=== PATIENT | female | born 1925 | race Hispanic/Latino ===

== ENCOUNTER 2017-08-05 00:01 | Inpatient (IN) | payer MEDICARE ==
--- NOTE | 2017-08-05 00:26 | Cat Scan Report ---
FINAL REPORT EXAM: CT HEAD/BRAIN WO CON HISTORY: ams TECHNIQUE: Routine axial imaging was obtained of the brain without IV contrast. FINDINGS: There is mild generalized atrophy. There is diminished attenuation of the periventricular white matter compatible with chronic ischemic white matter disease changes. There is no evidence of acute stroke or hemorrhage. The ventricular system is appropriate in size and is symmetric. The visualized sinuses are clear. The mastoid air cells are well pneumatized. IMPRESSION: Mild generalized atrophy with chronic ischemic white matter disease changes. No evidence of acute stroke or hemorrhage.
[2017-08-05 00:32] LABS: Basophils % (Auto) 0.4 % (0.0-1.8); Eosinophils # (Auto) 0.2 K/mm3 (0.0-0.4); Eosinophils % (Auto) 1.8 % (0.0-4.3); Hemoglobin 14.1 gm/dl (10.1-14.3); Lymphocytes # (Auto) 4.5 K/mm3 (1.2-5.4); Lymphocytes % (Auto) 37.6 % (13.4-35.0); Mean Corpuscular HGB Conc 34 % (30-34); Mean Corpuscular Hemoglobin 31 pg (28-32); Mean Corpuscular Volume 91 fl (79-97); Monocytes # (Auto) 0.8 K/mm3 (0.0-0.8); Platelet Count 240 K/mm3 (140-440); Red Blood Count 4.62 M/mm3 (3.65-5.03); Red Cell Distribution Width 13.4 % (13.2-15.2)
[2017-08-05 00:45] LABS: INR 0.79 (0.87-1.13); Partial Thromboplastin Time 30.3 Sec. (24.2-36.6)
--- NOTE | 2017-08-05 00:45 | Emergency Department Report ---
ED Altered Mental Status HPI - General Chief Complaint: Altered Mental Status Stated Complaint: POSS STROKE Time Seen by Provider: 08/05/17 00:06 Source: EMS Mode of arrival: Stretcher Limitations: Altered Mental Status - History of Present Illness Initial Comments: 89-year-old female with unknown past medical history presents to the hospital with possible stroke symptoms. Family came home at 6 PM patient was "not acting like herself". Patient requests slurred speech, unable to stand, and was urinating in the bed. Positive confusion reported. Family at the scene denied past medical history as per EMS. Patient is oriented to self, place, but not to year. She denies any pain at this time. Daughter was able to provide patient's home meds which suggests that patient has a past medical history of osteoporosis, possible neuropathy, hypothyroidism , gastritis, and depression - Related Data Home Medications Medication Instructions Recorded Confirmed Last Taken Alendronate Sodium [Fosamax] 70 mg PO 1XW 08/05/17 08/05/17 08/01/17 Duloxetine HCl [DULoxetine] 60 mg PO DAILY 08/05/17 08/05/17 08/04/17 Gabapentin [Neurontin] 400 mg PO DAILY 08/05/17 08/05/17 08/04/17 HYDROcodone/ACETAMINOPHEN 1 each PO Q8HR PRN 08/05/17 08/05/17 08/04/17 [Hydrocodon-Acetaminophn 10-325] Levothyroxine [Synthroid] 88 mcg PO QAM 08/05/17 08/05/17 08/04/17 Omeprazole 20 mg PO TID 08/05/17 08/05/17 08/04/17 Paroxetine HCl [Paxil] 40 mg PO DAILY 08/05/17 08/05/17 08/04/17 Allergies Allergy/AdvReac Type Severity Reaction Status Date / Time Jbhuogl-Iod-Dzl Reductase Allergy Unknown Verified 08/05/17 01:01 Inhibitor ED Review of Systems ROS: Stated complaint: POSS STROKE Other details as noted in HPI Comment: All other systems reviewed and negative Other: Constitutional: No fevers chills Eyes: No eye pain ENT: No ear pain Neck: Denies pain Respiratory: Denies shortness of breath Cardiovascular: Denies chest pain GI: Denies abdominal pain : Denies dysuria Musculoskeletal: Denies back pain Skin: Denies rash, lesions, erythema Neurologic: Denies headache Psychiatric: Denies suicidal ideation, hallucinations ED Past Medical Hx - Past Medical History Previous Medical History?: No Hx Dementia: Yes Additional medical history: Dementia. Hypothyroidism - Surgical History Past Surgical History?: No - Medications Home Medications: Home Medications Medication Instructions Recorded Confirmed Last Taken Type Alendronate Sodium [Fosamax] 70 mg PO 1XW 08/05/17 08/05/17 08/01/17 History Duloxetine HCl [DULoxetine] 60 mg PO DAILY 08/05/17 08/05/17 08/04/17 History Gabapentin [Neurontin] 400 mg PO DAILY 08/05/17 08/05/17 08/04/17 History HYDROcodone/ACETAMINOPHEN 1 each PO Q8HR PRN 08/05/17 08/05/17 08/04/17 History [Hydrocodon-Acetaminophn 10-325] Levothyroxine [Synthroid] 88 mcg PO QAM 08/05/17 08/05/17 08/04/17 History Omeprazole 20 mg PO TID 08/05/17 08/05/17 08/04/17 History Paroxetine HCl [Paxil] 40 mg PO DAILY 08/05/17 08/05/17 08/04/17 History ED Physical Exam - General Limitations: Altered Mental Status - Other Other exam information: General: No limitations, patient is alert in no acute distress Head exam: Atraumatic, normocephalic Eyes exam: Normal appearance, pupils equal reactive to light, extraocular movements intact ENT: Moist mucous membrane, normal oropharynx Neck exam: Normal inspection, full range of motion, no meningismus nontender Respiratory exam: Clear to auscultation bilateral, no wheezes, rales, crackles Cardiovascular: Normal rate and rhythm, normal heart sounds Abdomen: Soft, nondistended, and nontender, with normal bowel sounds, no rebound, or guarding Extremity: Full range of motion normal inspection no deformity Back: Normal Inspection, full range of motion, no tenderness Neurologic: Alert, oriented x3, cranial nerves intact, see nih stroke scale Psychiatric: normal affect, normal mood Skin: Warm, dry, intact - Assessment Assessment Interval: Baseline - Level of Consciousness 1a. Level of Consciousness: alert - LOC Questions 1b. LOC Questions: answers 1 question correctly - LOC Command 1c. LOC Commands: performs tasks correctly - Best Gaze 2. Best Gaze: normal - Visual 3. Visual: no visual loss - Facial Palsy 4. Facial Palsy: normal symmetrical movement - Motor Arm 5b. Motor Arm Right: no drift 5a. Motor Arm Left: no drift - Motor Leg 6a. Motor Leg Left: no drift 6b. Motor Leg Right: no drift - Limb Ataxia 7. Limb Ataxia: absent - Sensory 8. Sensory: normal - Best Language 9. Best Language: no aphasia - Dysarthria 10. Dysarthria: normal - Extinction and Inattention 11. Extinction/Inattention: no abnormality - Scoring Total Score: 1 Stroke Severity: Minor Stroke ED Course Vital Signs 08/05/17 08/05/17 08/05/17 00:22 00:31 00:44 Temperature 97.6 F Pulse Rate 86 86 76 Respiratory 19 19 20 Rate Blood Pressure Blood Pressure 121/73 [Left] O2 Sat by Pulse 96 99 100 Oximetry 08/05/17 00:45 Temperature Pulse Rate 81 Respiratory 16 Rate Blood Pressure 129/71 Blood Pressure [Left] O2 Sat by Pulse 100 Oximetry - Consultations Consultation #1: 08/05/17 03:[address] Hdz at [place] and approved admission here. States that patient also has a history of dementia - Lab Data Result diagrams: 08/05/17 00:10 08/05/17 00:10 Lab Results 08/05/17 08/05/17 08/05/17 Range/Units 00:10 00:10 00:10 WBC 11.9 H (4.5-11.0) K/mm3 RBC 4.62 (3.65-5.03) M/mm3 Hgb 14.1 (10.1-14.3) gm/dl Hct 42.0 (30.3-42.9) % MCV 91 (79-97) fl MCH 31 (28-32) pg MCHC 34 (30-34) % RDW 13.4 (13.2-15.2) % Plt Count 240 (140-440) K/mm3 Lymph % (Auto) 37.6 H (13.4-35.0) % [place] % (Auto) 7.0 (0.0-7.3) % Eos % (Auto) 1.8 (0.0-4.3) % Baso % (Auto) 0.4 (0.0-1.8) % Lymph # 4.5 (1.2-5.4) K/mm3 [place] # 0.8 (0.0-0.8) K/mm3 Eos # 0.2 (0.0-0.4) K/mm3 Baso # 0.0 (0.0-0.1) K/mm3 Seg Neutrophils % 53.2 (40.0-70.0) % Seg Neutrophils # 6.3 (1.8-7.7) K/mm3 PT (12.2-14.9) Sec. INR (0.87-1.13) APTT (24.2-36.6) Sec. Sodium 131 L (137-145) mmol/L Potassium 3.6 (3.6-5.0) mmol/L Chloride 88.4 L (98-107) mmol/L Carbon Dioxide 30 (22-30) mmol/L Anion Gap 16 mmol/L BUN 9 (7-17) mg/dL Creatinine 0.5 L (0.7-1.2) mg/dL Estimated GFR > 60 ml/min BUN/Creatinine Ratio 18 % Glucose 109 H (65-100) mg/dL Calcium 8.5 (8.4-10.2) mg/dL Magnesium 1.70 (1.7-2.3) mg/dL Total Bilirubin 0.50 (0.1-1.2) mg/dL AST 17 (5-40) units/L ALT 13 (7-56) units/L Alkaline Phosphatase 70 (35-129) units/L Ammonia 19.0 L (25-60) umol/L Total Creatine Kinase 67 (30-135) units/L CK-MB (CK-2) 4.3 H (0.0-4.0) ng/mL CK-MB (CK-2) Rel Index 6.4 H (0-4) Troponin T < 0.010 (0.00-0.029) ng/mL Total Protein 6.6 (6.3-8.2) g/dL Albumin 3.6 L (3.9-5) g/dL Albumin/Globulin Ratio 1.2 % TSH (0.270-4.200) mlU/mL Free T4 (0.76-1.46) ng/dL Urine Color (Yellow) Urine Turbidity (Clear) Urine pH (5.0-7.0) Ur Specific [place] (1.003-1.030) Urine Protein (Negative) mg/dL Urine Glucose (UA) (Negative) mg/dL Urine Ketones (Negative) mg/dL Urine Blood (Negative) Urine Nitrite (Negative) Urine Bilirubin (Negative) Urine Urobilinogen (<2.0) mg/dL Ur Leukocyte Esterase (Negative) Urine WBC (Auto) (0.0-6.0) /HPF Urine RBC (Auto) (0.0-6.0) /HPF Urine Mucus /HPF Urine Opiates Screen Urine Methadone Screen Ur Barbiturates Screen Ur Phencyclidine Scrn Ur Amphetamines Screen U Benzodiazepines Scrn Urine Cocaine Screen U Marijuana (THC) Screen Drugs of Abuse Note Plasma/Serum Alcohol (0-0.07) % 08/05/17 08/05/17 08/05/17 Range/Units 00:10 00:10 00:10 WBC (4.5-11.0) K/mm3 RBC (3.65-5.03) M/mm3 Hgb (10.1-14.3) gm/dl Hct (30.3-42.9) % MCV (79-97) fl MCH (28-32) pg MCHC (30-34) % RDW (13.2-15.2) % Plt Count (140-440) K/mm3 Lymph % (Auto) (13.4-35.0) % [place] % (Auto) (0.0-7.3) % Eos % (Auto) (0.0-4.3) % Baso % (Auto) (0.0-1.8) % Lymph # (1.2-5.4) K/mm3 [place] # (0.0-0.8) K/mm3 Eos # (0.0-0.4) K/mm3 Baso # (0.0-0.1) K/mm3 Seg Neutrophils % (40.0-70.0) % Seg Neutrophils # (1.8-7.7) K/mm3 PT 11.4 L (12.2-14.9) Sec. INR 0.79 L (0.87-1.13) APTT 30.3 (24.2-36.6) Sec. Sodium (137-145) mmol/L Potassium (3.6-5.0) mmol/L Chloride (98-107) mmol/L Carbon Dioxide (22-30) mmol/L Anion Gap mmol/L BUN (7-17) mg/dL Creatinine (0.7-1.2) mg/dL Estimated GFR ml/min BUN/Creatinine Ratio % Glucose (65-100) mg/dL Calcium (8.4-10.2) mg/dL Magnesium (1.7-2.3) mg/dL Total Bilirubin (0.1-1.2) mg/dL AST (5-40) units/L ALT (7-56) units/L Alkaline Phosphatase (35-129) units/L Ammonia (25-60) umol/L Total Creatine Kinase (30-135) units/L CK-MB (CK-2) (0.0-4.0) ng/mL CK-MB (CK-2) Rel Index (0-4) Troponin T (0.00-0.029) ng/mL Total Protein (6.3-8.2) g/dL Albumin (3.9-5) g/dL Albumin/Globulin Ratio % TSH 4.960 H (0.270-4.200) mlU/mL Free T4 1.61 H (0.76-1.46) ng/dL Urine Color (Yellow) Urine Turbidity (Clear) Urine pH (5.0-7.0) Ur Specific [place] (1.003-1.030) Urine Protein (Negative) mg/dL Urine Glucose (UA) (Negative) mg/dL Urine Ketones (Negative) mg/dL Urine Blood (Negative) Urine Nitrite (Negative) Urine Bilirubin (Negative) Urine Urobilinogen (<2.0) mg/dL Ur Leukocyte Esterase (Negative) Urine WBC (Auto) (0.0-6.0) /HPF Urine RBC (Auto) (0.0-6.0) /HPF Urine Mucus /HPF Urine Opiates Screen Urine Methadone Screen Ur Barbiturates Screen Ur Phencyclidine Scrn Ur Amphetamines Screen U Benzodiazepines Scrn Urine Cocaine Screen U Marijuana (THC) Screen Drugs of Abuse Note Plasma/Serum Alcohol < 0.01 (0-0.07) % 08/05/17 08/05/17 Range/Units 00:44 00:44 WBC (4.5-11.0) K/mm3 RBC (3.65-5.03) M/mm3 Hgb (10.1-14.3) gm/dl Hct (30.3-42.9) % MCV (79-97) fl MCH (28-32) pg MCHC (30-34) % RDW (13.2-15.2) % Plt Count (140-440) K/mm3 Lymph % (Auto) (13.4-35.0) % [place] % (Auto) (0.0-7.3) % Eos % (Auto) (0.0-4.3) % Baso % (Auto) (0.0-1.8) % Lymph # (1.2-5.4) K/mm3 [place] # (0.0-0.8) K/mm3 Eos # (0.0-0.4) K/mm3 Baso # (0.0-0.1) K/mm3 Seg Neutrophils % (40.0-70.0) % Seg Neutrophils # (1.8-7.7) K/mm3 PT (12.2-14.9) Sec. INR (0.87-1.13) APTT (24.2-36.6) Sec. Sodium (137-145) mmol/L Potassium (3.6-5.0) mmol/L Chloride (98-107) mmol/L Carbon Dioxide (22-30) mmol/L Anion Gap mmol/L BUN (7-17) mg/dL Creatinine (0.7-1.2) mg/dL Estimated GFR ml/min BUN/Creatinine Ratio % Glucose (65-100) mg/dL Calcium (8.4-10.2) mg/dL Magnesium (1.7-2.3) mg/dL Total Bilirubin (0.1-1.2) mg/dL AST (5-40) units/L ALT (7-56) units/L Alkaline Phosphatase (35-129) units/L Ammonia (25-60) umol/L Total Creatine Kinase (30-135) units/L CK-MB (CK-2) (0.0-4.0) ng/mL CK-MB (CK-2) Rel Index (0-4) Troponin T (0.00-0.029) ng/mL Total Protein (6.3-8.2) g/dL Albumin (3.9-5) g/dL Albumin/Globulin Ratio % TSH (0.270-4.200) mlU/mL Free T4 (0.76-1.46) ng/dL Urine Color Straw (Yellow) Urine Turbidity Clear (Clear) Urine pH 7.0 (5.0-7.0) Ur Specific [place] 1.004 (1.003-1.030) Urine Protein <15 mg/dl (Negative) mg/dL Urine Glucose (UA) Neg (Negative) mg/dL Urine Ketones Neg (Negative) mg/dL Urine Blood Sm (Negative) Urine Nitrite Neg (Negative) Urine Bilirubin Neg (Negative) Urine Urobilinogen < 2.0 (<2.0) mg/dL Ur Leukocyte Esterase Neg (Negative) Urine WBC (Auto) < 1.0 (0.0-6.0) /HPF Urine RBC (Auto) 2.0 (0.0-6.0) /HPF Urine Mucus Few /HPF Urine Opiates Screen Presumptive negative Urine Methadone Screen Presumptive negative Ur Barbiturates Screen Presumptive negative Ur Phencyclidine Scrn Presumptive negative Ur Amphetamines Screen Presumptive negative U Benzodiazepines Scrn Presumptive negative Urine Cocaine Screen Presumptive negative U Marijuana (THC) Screen Presumptive negative Drugs of Abuse Note Disclamer Plasma/Serum Alcohol (0-0.07) % - EKG Data -: EKG Interpreted by Wy EKG shows normal: sinus rhythm, axis (-41), QRS complexes (87), ST-T waves (no stemi/t inv) Rate: normal (85) - Radiology Data Radiology results: report reviewed Read by radiologist CT head: Mild Generalized atrophy with chronic ischemic white matter disease changes - Medical Decision Making Patient here for alteration in mental status. Initial ED workup fairly unremarkable with exception of hyponatremia. EMS noted that family members appear to be intoxicated and was speaking to daughter on the phone she did appear to be intoxicated. Patient will be admitted to the hospital at this time for possible alteration in mental status and to determine state discharge plan. - Differential Diagnosis cva, encephalopathy, uti, dementia, ich Critical Care Time: No Critical care attestation.: If time is entered above; I have spent that time in minutes in the direct care of this critically ill patient, excluding procedure time. ED Disposition Clinical Impression: Dementia, Hypothyroidism, Generalized weakness Disposition: OP ADMIT IP TO THIS HOSP Is pt being admited?: Yes Condition: Stable Time of Disposition: 03:14 (Dr Gill/hosp)
[2017-08-05 00:51] LABS: Creatine Kinase MB 4.3 ng/mL (0.0-4.0)
[2017-08-05 00:53] LABS: Alanine Aminotransferase 13 units/L (7-56); Albumin 3.6 g/dL (3.9-5); BUN/Creatinine Ratio 18; Blood Urea Nitrogen 9 mg/dL (7-17); Calcium 8.5 mg/dL (8.4-10.2); Hemolysis Index 3
[2017-08-05 00:58] LABS: Free T4 (Free Thyroxine) 1.61 ng/dL (0.76-1.46)
[2017-08-05 02:19] LABS: Bilirubin,Urine NEG (Negative); Blood,Urine SM (Negative); Color,Urine Straw (Yellow); Mucus,Urine FEW /HPF; Nitrite,Urine NEG (Negative); Protein,Urine <15 mg/dL mg/dL (Negative); Urobilinogen,Urine < 2.0 mg/dL (<2.0); WBC,Urine < 1.0 /HPF (0.0-6.0)
[2017-08-05 02:29] LABS: Amphetamine Screen,Urine PRESUMPTIVE NEGATIVE; Benzodiazepines Screen,Urine PRESUMPTIVE NEGATIVE; Cannabinoid Screen,Urine PRESUMPTIVE NEGATIVE; Cocaine Screen,Urine PRESUMPTIVE NEGATIVE; Methadone Screen,Urine PRESUMPTIVE NEGATIVE; Opiate Screen,Urine PRESUMPTIVE NEGATIVE
[2017-08-05] MEDS ORDERED: TYLENOL PO PRN (10:44)
[2017-08-05] MEDS ORDERED: ZOFRAN IV PRN (10:44)
[2017-08-05] MEDS ORDERED: MILK OF MAGNESIA PO PRN (10:44)
[2017-08-05] MEDS ORDERED: SENOKOT PO PRN (10:44)
[2017-08-05] MEDS ORDERED: DULCOLAX PR PRN (10:44)
[2017-08-05] MEDS ORDERED: SODIUM CHLORIDE FLUSH SYRINGE 10 ML IV PRN (10:44)
[2017-08-05] MEDS ORDERED: NORMODYNE IV ONE (11:00)
[2017-08-05] MEDS: ATIVAN IV PRN ×2 (12:35→13:10)
--- NOTE | 2017-08-05 13:49 | XRay Report ---
CHEST XRAY, 2 VIEWS: History: Stroke. Findings: There is mild cardiomegaly. Pulmonary vessels are within normal limits. The lungs are clear and fully expanded. No infiltrate, pleural effusion or pneumothorax. Normal thoracic cage. IMPRESSION: Cardiomegaly.
--- NOTE | 2017-08-05 15:02 | Magnetic Resonance Report ---
MRI OF THE BRAIN WITHOUT CONTRAST: HISTORY: CVA PROCEDURE: Multiplanar, multisequence MR imaging of the brain without IV contrast was performed. FINDINGS: Compared to the CT scan performed 08/05/17. Diffuse volume loss and advanced chronic white matter changes in the cerebral white matter and [place] are noted. No evidence for acute ischemia, hemorrhage or mass. No chronic infarct or extra-axial fluid collection. The midline structures are central. The basal cisterns are patent. Normal ventricular size. The orbital cavities and sella turcica demonstrate no abnormality. The visualized paranasal sinuses and mastoid air cells are well aerated. IMPRESSION: No evidence for acute or subacute stroke. Advanced volume loss and chronic white matter changes.
--- NOTE | 2017-08-05 15:03 | Magnetic Resonance Report ---
MRA HEAD WITHOUT CONTRAST HISTORY: Stroke. [id number] imaging with MIP reformations of the [place] is submitted. The images are severely limited by patient motion artifact. The arteries appear widely patent and free of hemodynamically significant stenosis, aneurysm or dissection. IMPRESSION: Limited exam. No large vessel occlusion or aneurysm is detected.
[2017-08-05] MEDS: ASPIRIN PO SCH (15:24)
[2017-08-05] MEDS: CYMBALTA PO SCH (15:24)
[2017-08-05] MEDS: PAXIL PO SCH (15:34)
[2017-08-05] MEDS: PROTONIX PO SCH (15:34)
--- NOTE | 2017-08-05 17:10 | History and Physical Report ---
History of Present Illness Date of admission: 08/05/17 07:02 Chief complaint: She has been acting strange History of present illness: The patient is currently confused and somnolent, history was taken from the chart 89-year-old woman was brought in by family for confusion. She was noted by family members to be confused and having slurred speech Seems strangely. She apparently urinated in her bed is unusual for her -Unable to get any further history as the patient is confused and not given history Past History Past Medical History: other (osteoporosis, neuropathy, dementia, gastritis, depression) Past Surgical History: Other (unknown) Social history: other (unknown) Family history: other (unknown) Medications and Allergies Allergies Allergy/AdvReac Type Severity Reaction Status Date / Time Rgdvywm-Pve-Yfy Reductase Allergy Unknown Verified 08/05/17 01:01 Inhibitor Home Medications Medication Instructions Recorded Confirmed Last Taken Type Alendronate Sodium [Fosamax] 70 mg PO 1XW 08/05/17 08/05/17 08/01/17 History Duloxetine HCl [DULoxetine] 60 mg PO DAILY 08/05/17 08/05/17 08/04/17 History Gabapentin [Neurontin] 400 mg PO DAILY 08/05/17 08/05/17 08/04/17 History HYDROcodone/ACETAMINOPHEN 1 each PO Q8HR PRN 08/05/17 08/05/17 08/04/17 History [Hydrocodon-Acetaminophn 10-325] Levothyroxine [Synthroid] 88 mcg PO QAM 08/05/17 08/05/17 08/04/17 History Omeprazole 20 mg PO TID 08/05/17 08/05/17 08/04/17 History Paroxetine HCl [Paxil] 40 mg PO DAILY 08/05/17 08/05/17 08/04/17 History Active Meds: Active Medications Acetaminophen (Tylenol) 650 mg PO Q4H PRN PRN Reason: Pain, Mild (1-3) Aspirin (Aspirin) 325 mg PO QDAY ON LICENSE OF [facility] Last Admin: 08/05/17 15:24 Dose: 325 mg Bisacodyl (Dulcolax) 10 mg MD QDAY PRN PRN Reason: Constipation Duloxetine HCl (Cymbalta) 60 mg PO QDAY ON LICENSE OF [facility] Last Admin: 08/05/17 15:24 Dose: 60 mg Levothyroxine Sodium (Synthroid) 88 mcg PO DAILY@0600 ON LICENSE OF [facility] Magnesium Hydroxide (Milk Of Magnesia) 30 ml PO Q4H PRN PRN Reason: Constipation Ondansetron HCl (Zofran) 4 mg IV Q8H PRN PRN Reason: N/V unrelieved by Reglan Pantoprazole Sodium (Protonix) 40 mg PO DAILY ON LICENSE OF [facility] Last Admin: 08/05/17 15:34 Dose: 40 mg Paroxetine HCl (Paxil) 40 mg PO DAILY ON LICENSE OF [facility] Last Admin: 08/05/17 15:34 Dose: 40 mg Senna (Senokot) 8.6 mg PO Q12H PRN PRN Reason: Laxative Effect Sodium Chloride (Sodium Chloride Flush Syringe 10 Ml) 10 ml IV PRN PRN PRN Reason: LINE FLUSH Review of Systems ROS unobtainable: due to mental status Exam - Constitutional Vitals: Temp Pulse Resp BP Pulse Ox 98.5 F 86 19 146/69 80 L 08/05/17 11:14 08/05/17 15:24 08/05/17 11:14 08/05/17 15:24 08/05/17 14:55 General appearance: Present: no acute distress, well-nourished - EENT Eyes: Present: PERRL ENT: hearing intact, clear oral mucosa - Neck Neck: Present: supple, normal ROM - Respiratory Respiratory effort: normal Respiratory: bilateral: CTA - Cardiovascular Heart Sounds: Present: S1 & S2. Absent: rub, click - Extremities Extremities: pulses symmetrical, No edema Peripheral Pulses: within normal limits - Abdominal General gastrointestinal: Present: soft, non-tender, non-distended, normal bowel sounds Female genitourinary: Present: normal - Integumentary Integumentary: Present: clear, warm, dry - Musculoskeletal Musculoskeletal: gait normal, strength equal bilaterally - Psychiatric Psychiatric: other (confused, somnolent) - Neurologic Neurologic: other (confused, somnolent) Results - Labs CBC & Chem 7: 08/05/17 00:10 08/05/17 00:10 Labs: Laboratory Last Values WBC 11.9 K/mm3 (4.5-11.0) H 08/05/17 00:10 RBC 4.62 M/mm3 (3.65-5.03) 08/05/17 00:10 Hgb 14.1 gm/dl (10.1-14.3) 08/05/17 00:10 Hct 42.0 % (30.3-42.9) 08/05/17 00:10 MCV 91 fl (79-97) 08/05/17 00:10 MCH 31 pg (28-32) 08/05/17 00:10 MCHC 34 % (30-34) 08/05/17 00:10 RDW 13.4 % (13.2-15.2) 08/05/17 00:10 Plt Count 240 K/mm3 (140-440) 08/05/17 00:10 Lymph % (Auto) 37.6 % (13.4-35.0) H 08/05/17 00:10 [place] % (Auto) 7.0 % (0.0-7.3) 08/05/17 00:10 Eos % (Auto) 1.8 % (0.0-4.3) 08/05/17 00:10 Baso % (Auto) 0.4 % (0.0-1.8) 08/05/17 00:10 Lymph # 4.5 K/mm3 (1.2-5.4) 08/05/17 00:10 [place] # 0.8 K/mm3 (0.0-0.8) 08/05/17 00:10 Eos # 0.2 K/mm3 (0.0-0.4) 08/05/17 00:10 Baso # 0.0 K/mm3 (0.0-0.1) 08/05/17 00:10 Seg Neutrophils % 53.2 % (40.0-70.0) 08/05/17 00:10 Seg Neutrophils # 6.3 K/mm3 (1.8-7.7) 08/05/17 00:10 PT 11.4 Sec. (12.2-14.9) L 08/05/17 00:10 INR 0.79 (0.87-1.13) L 08/05/17 00:10 APTT 30.3 Sec. (24.2-36.6) 08/05/17 00:10 Sodium 131 mmol/L (137-145) L 08/05/17 00:10 Potassium 3.6 mmol/L (3.6-5.0) 08/05/17 00:10 Chloride 88.4 mmol/L (98-107) L 08/05/17 00:10 Carbon Dioxide 30 mmol/L (22-30) 08/05/17 00:10 Anion Gap 16 mmol/L 08/05/17 00:10 BUN 9 mg/dL (7-17) 08/05/17 00:10 Creatinine 0.5 mg/dL (0.7-1.2) L 08/05/17 00:10 Estimated GFR > 60 ml/min 08/05/17 00:10 BUN/Creatinine Ratio 18 % 08/05/17 00:10 Glucose 109 mg/dL (65-100) H 08/05/17 00:10 POC Glucose 88 (70-105) 08/05/17 00:03 Calcium 8.5 mg/dL (8.4-10.2) 08/05/17 00:10 Magnesium 1.70 mg/dL (1.7-2.3) 08/05/17 00:10 Total Bilirubin 0.50 mg/dL (0.1-1.2) 08/05/17 00:10 AST 17 units/L (5-40) 08/05/17 00:10 ALT 13 units/L (7-56) 08/05/17 00:10 Alkaline Phosphatase 70 units/L (35-129) 08/05/17 00:10 Ammonia 19.0 umol/L (25-60) L 08/05/17 00:10 Total Creatine Kinase 67 units/L (30-135) 08/05/17 00:10 CK-MB (CK-2) 4.3 ng/mL (0.0-4.0) H 08/05/17 00:10 CK-MB (CK-2) Rel Index 6.4 (0-4) H 08/05/17 00:10 Troponin T < 0.010 ng/mL (0.00-0.029) 08/05/17 15:58 Total Protein 6.6 g/dL (6.3-8.2) 08/05/17 00:10 Albumin 3.6 g/dL (3.9-5) L 08/05/17 00:10 Albumin/Globulin Ratio 1.2 % 08/05/17 00:10 TSH 4.960 mlU/mL (0.270-4.200) H 08/05/17 00:10 Free T4 1.61 ng/dL (0.76-1.46) H 08/05/17 00:10 Thyroxine (T4) 11.1 ug/dL (4.0-12.0) 08/05/17 00:10 Urine Color Straw (Yellow) 08/05/17 00:44 Urine Turbidity Clear (Clear) 08/05/17 00:44 Urine pH 7.0 (5.0-7.0) 08/05/17 00:44 Ur Specific [place] 1.004 (1.003-1.030) 08/05/17 00:44 Urine Protein <15 mg/dl mg/dL (Negative) 08/05/17 00:44 Urine Glucose (UA) Neg mg/dL (Negative) 08/05/17 00:44 Urine Ketones Neg mg/dL (Negative) 08/05/17 00:44 Urine Blood Sm (Negative) 08/05/17 00:44 Urine Nitrite Neg (Negative) 08/05/17 00:44 Urine Bilirubin Neg (Negative) 08/05/17 00:44 Urine Urobilinogen < 2.0 mg/dL (<2.0) 08/05/17 00:44 Ur Leukocyte Esterase Neg (Negative) 08/05/17 00:44 Urine WBC (Auto) < 1.0 /HPF (0.0-6.0) 08/05/17 00:44 Urine RBC (Auto) 2.0 /HPF (0.0-6.0) 08/05/17 00:44 Urine Mucus Few /HPF 08/05/17 00:44 Urine Opiates Screen Presumptive negative 08/05/17 00:44 Urine Methadone Screen Presumptive negative 08/05/17 00:44 Ur Barbiturates Screen Presumptive negative 08/05/17 00:44 Ur Phencyclidine Scrn Presumptive negative 08/05/17 00:44 Ur Amphetamines Screen Presumptive negative 08/05/17 00:44 U Benzodiazepines Scrn Presumptive negative 08/05/17 00:44 Urine Cocaine Screen Presumptive negative 08/05/17 00:44 U Marijuana (THC) Screen Presumptive negative 08/05/17 00:44 Drugs of Abuse Note Disclamer 08/05/17 00:44 Plasma/Serum Alcohol < 0.01 % (0-0.07) 08/05/17 00:10 - Imaging and Cardiology CT Scan - head: image reviewed (no acute findings) Assessment and Plan Assessment and plan: 89F who was brought in by family for slurred speech, confusion, "acting strange ", metabolic encephalopathy -UA is negative, UDS is negative, check a chest x-ray to rule out an infectious process CVA? We'll put on stroke protocol, obtain neurology consult, MRI of her head, carotid Dopplers and echocardiogram -Allow permissive hypertension given suspicion of acute CVA - Hyponatremia -Has received normal saline, will continue at a reduced rate HTN -Allow permissive hypertension given a suspected CVA Hypothyroidism -Check T4, may benefit from increase in Synthroid dose Gastritis -Continue PPI Dvt ppx scds
--- NOTE | 2017-08-05 19:26 | Consultation ---
History of Present Illness Consult date: 08/05/17 Requesting physician: EVELIN MARTELL Reason for Consult: slurring of speech, altered mental status Chief complaint: slurred speech, new bladder incontinence in bed, altered mental status History of present illness: This 89-year-old white female yesterday was noted by her family to have new slurring of speech and bladder incontinence in bed which she had not had previously. She does have a history of dementia. It was "not herself" in their view. She is seen today after having had Ativan for sedation for her MRI scan, with no family in the room. Past History Past Medical History: other (osteoporosis, neuropathy, dementia, gastritis, depression.) Past Surgical History: Other (unknown) Social history: other (unknown). denies: smoking (but was smoking in the past) Family history: other (denies family history of epilepsy but cannot answer other questions) Medications and Allergies Allergies Allergy/AdvReac Type Severity Reaction Status Date / Time [id number]-[id number] Reductase Allergy Unknown Verified 08/05/17 01:01 Inhibitor Home Medications Medication Instructions Recorded Confirmed Last Taken Type Alendronate Sodium [Fosamax] 70 mg PO 1XW 08/05/17 08/05/17 08/01/17 History Duloxetine HCl [DULoxetine] 60 mg PO DAILY 08/05/17 08/05/17 08/04/17 History Gabapentin [Neurontin] 400 mg PO DAILY 08/05/17 08/05/17 08/04/17 History HYDROcodone/ACETAMINOPHEN 1 each PO Q8HR PRN 08/05/17 08/05/17 08/04/17 History [Hydrocodon-Acetaminophn 10-325] Levothyroxine [Synthroid] 88 mcg PO QAM 08/05/17 08/05/17 08/04/17 History Omeprazole 20 mg PO TID 08/05/17 08/05/17 08/04/17 History Paroxetine HCl [Paxil] 40 mg PO DAILY 08/05/17 08/05/17 08/04/17 History Active Meds: Active Medications Acetaminophen (Tylenol) 650 mg PO Q4H PRN PRN Reason: Pain, Mild (1-3) Aspirin (Aspirin) 325 mg PO QDAY NISHANT Last Admin: 08/05/17 15:24 Dose: 325 mg Bisacodyl (Dulcolax) 10 mg MI QDAY PRN PRN Reason: Constipation Duloxetine HCl (Cymbalta) 60 mg PO QDAY [facility] Last Admin: 08/05/17 15:24 Dose: 60 mg Levothyroxine Sodium (Synthroid) 88 mcg PO DAILY@0600 [facility] Magnesium Hydroxide (Milk Of Magnesia) 30 ml PO Q4H PRN PRN Reason: Constipation Ondansetron HCl (Zofran) 4 mg IV Q8H PRN PRN Reason: N/V unrelieved by Reglan Pantoprazole Sodium (Protonix) 40 mg PO DAILY [facility] Last Admin: 08/05/17 15:34 Dose: 40 mg Paroxetine HCl (Paxil) 40 mg PO DAILY [facility] Last Admin: 08/05/17 15:34 Dose: 40 mg Senna (Senokot) 8.6 mg PO Q12H PRN PRN Reason: Laxative Effect Sodium Chloride (Sodium Chloride Flush Syringe 10 Ml) 10 ml IV PRN PRN PRN Reason: LINE FLUSH Review of Systems ROS unobtainable: due to mental status (but seems to say she does snore) Constitutional: other Physical Examination - Vital Signs Vital Signs: Vital Signs Pulse Resp Pulse Ox 86 19 96 08/05/17 00:22 08/05/17 00:22 08/05/17 00:22 - Physical Exam Narrative exam: General Appearance: well developed but overweight (per BMI) late 80s white female in [facility] but sleepy following sedation. HEENT: atraumatic, normocephalic; no bruits, 2+ José without soreness or induration or enlargement, sclerae nonicteric. Oropharynx pink and moist. Neck: supple, no bruits. Heart: no murmur or extra sounds. Extremities: no clubbing, cyanosis or edema. No posterior tibial or dorsalis pedis pulses palpable on either side. Neurologic Exam: Mental Status: Arouses to wake semi-alert but not oriented (per nurse was quite alert prior to the sedation), speech is dysarthric in part perhaps due to being edentulous but probably also from Ativan, cannot name or abstract a spine or spell world or do a right-left command. Cannot name President or Software Security Consultant , serial 7's can't be done, cannot attempt 3 of 3 objects at 3 minutes. Asks fairly clearly "what time is it anyway?" Cranial Nerves: salas full grossly, no papilledema, SVPs present, PERRL, EOMs full grossly, facial sensation intact to pinprick, no facial weakness on grimacing, [place] cannot be assessed, gags are positive, shoulder shrug cannot be done, tongue protrudes to the left when she finally does it. Cerebellar: finger to nose okay on the left but jerky apraxic for the right. Cannot do heel to raymundo. Sensory: intact to pinprick, appears to have decreased vibrations in toes of left foot. Motor Exam Upper Extremities: no drift or pronation, Alexandra can't be done, track layer are 4+ left but won't geographical historian on the right, tone is normal. No atrophy or fasciculations are noted visually. Motor Exam Lower Extremities: Lifts legs minimally at 4- or less strength and apraxic. Alexandra cannot be done. Tone is normal. No atrophy or fasciculations are noted visually. Reflexes: Palmomental, snout and jaw jerk are negative. Triceps, biceps and brachioradialis are trace bilaterally. Bobby's is negative bilaterally. Knee jerks and ankle jerks are 0 bilaterally without clonus. Toes are downgoing right and upgoing left to Babinski testing. Results - Laboratory Findings CBC and BMP: 08/05/17 00:10 08/05/17 00:10 Abnormal Lab Findings: Abnormal Labs 08/05/17 08/05/17 08/05/17 00:10 00:10 00:10 WBC 11.9 H Lymph % (Auto) 37.6 H PT INR Sodium 131 L Chloride 88.4 L Creatinine 0.5 L Glucose 109 H Ammonia 19.0 L CK-MB (CK-2) 4.3 H CK-MB (CK-2) Rel Index 6.4 H Albumin 3.6 L TSH Free T4 08/05/17 08/05/17 00:10 00:10 WBC Lymph % (Auto) PT 11.4 L INR 0.79 L Sodium Chloride Creatinine Glucose Ammonia CK-MB (CK-2) CK-MB (CK-2) Rel Index Albumin TSH 4.960 H Free T4 1.61 H Assessment and Plan Impression: 1. Dysarthria 2. Lacunar strokes 3. Memory loss Plan: 1. Reviewed MRIs showing negative diffusion, negative GRE, cerebral and cerebellar atrophy are present, pontine FLAIR and periventricular lacunar changes (all old). Brain MRA was quite noisy but seemed intact. 2. Will order EEG. 3. TSH was elevated but so was free T4 so I'll order a total T3 to perhaps settle that issue. We'll also order B1, B12 and folic acid. 4. May need lumbar puncture if EEG is unrevealing and not improving clinically. 45 minutes spent including review of 100s of MRI images. Thank you for an interesting consultation on this unfortunate elderly lady.
[2017-08-06 06:00] LABS: Chol/HDL Ratio 2.14 %
[2017-08-06] MEDS: SYNTHROID PO SCH (06:26)
[2017-08-06] MEDS ORDERED: NON-FORMULARY (Omeprazole [Omeprazole] 40 MG) PO SCH (10:00)
[2017-08-06] MEDS ORDERED: PAROXETINE HCL 40 MG PO SCH (10:00)
[2017-08-06] MEDS ORDERED: NON-FORMULARY (Duloxetine Hcl [Duloxetine] 60 MG) PO SCH (10:00)
[2017-08-06] MEDS: CYMBALTA PO SCH (10:29)
[2017-08-06] MEDS: PROTONIX PO SCH (10:30)
[2017-08-06] MEDS: ASPIRIN PO SCH (10:30)
[2017-08-06] MEDS: PAXIL PO SCH (10:30)
--- NOTE | 2017-08-06 14:07 | Progress Note ---
Assessment and Plan Assessment and plan: 89F who was brought in by family for slurred speech, confusion, "acting strange ", metabolic encephalopathy -UA is negative, UDS is negative, chest x-ray was also negative for infectious process -Now resolved, back to baseline mentation CVA ruled out, neurology input appreciated, MRI of her brain was unremarkable - Hyponatremia -Has received normal saline HTN -Resume meds Hypothyroidism -Total T4 is within normal limits, continue Synthroid at current dose Gastritis -Continue PPI Dvt ppx scds Home with services tomorrow if continues to improve History Interval history: she appears to have some moderate baseline dementia, no complaints from the patient She is not sure why she is here, but knows she is feeling better Review of systems Constitutional: No fevers, no malaise, no joint pains CVS: No chest pain, no orthopnea, no dyspnea on exertion, no pedal edema GI: No abdominal pain, no diarrhea, no vomiting, no constipation Respiratory: No shortness of breath, no wheezing, no coughing Hospitalist Physical - Physical exam Narrative exam: General.: Appears well, no distress, nontoxic HEENT: Moist mucous membranes, extraocular muscles intact, no lymphadenopathy Neck: supple Cardiac: S1-S2 heard Lungs: clear to auscultation bilaterally Abdomen: soft , nontender, nondistended, bowel sounds positive Extremities: no edema clubbing or cyanosis Skin: no rash or lesions Neurologic: Moves all extremities, demented, oriented to person and place, she thinks it is 1997 - Constitutional Vitals: Temp Pulse Resp BP Pulse Ox 98.6 F 98 H 20 139/83 94 08/06/17 08:24 08/06/17 08:24 08/06/17 10:00 08/06/17 08:24 08/06/17 10:00 General appearance: Present: no acute distress, well-nourished Results - Labs CBC & Chem 7: 08/05/17 00:10 08/05/17 00:10 Labs: Laboratory Last Values WBC 11.9 K/mm3 (4.5-11.0) H 08/05/17 00:10 RBC 4.62 M/mm3 (3.65-5.03) 08/05/17 00:10 Hgb 14.1 gm/dl (10.1-14.3) 08/05/17 00:10 Hct 42.0 % (30.3-42.9) 08/05/17 00:10 MCV 91 fl (79-97) 08/05/17 00:10 MCH 31 pg (28-32) 08/05/17 00:10 MCHC 34 % (30-34) 08/05/17 00:10 RDW 13.4 % (13.2-15.2) 08/05/17 00:10 Plt Count 240 K/mm3 (140-440) 08/05/17 00:10 Lymph % (Auto) 37.6 % (13.4-35.0) H 08/05/17 00:10 [place] % (Auto) 7.0 % (0.0-7.3) 08/05/17 00:10 Eos % (Auto) 1.8 % (0.0-4.3) 08/05/17 00:10 Baso % (Auto) 0.4 % (0.0-1.8) 08/05/17 00:10 Lymph # 4.5 K/mm3 (1.2-5.4) 08/05/17 00:10 [place] # 0.8 K/mm3 (0.0-0.8) 08/05/17 00:10 Eos # 0.2 K/mm3 (0.0-0.4) 08/05/17 00:10 Baso # 0.0 K/mm3 (0.0-0.1) 08/05/17 00:10 Seg Neutrophils % 53.2 % (40.0-70.0) 08/05/17 00:10 Seg Neutrophils # 6.3 K/mm3 (1.8-7.7) 08/05/17 00:10 PT 11.4 Sec. (12.2-14.9) L 08/05/17 00:10 INR 0.79 (0.87-1.13) L 08/05/17 00:10 APTT 30.3 Sec. (24.2-36.6) 08/05/17 00:10 Sodium 131 mmol/L (137-145) L 08/05/17 00:10 Potassium 3.6 mmol/L (3.6-5.0) 08/05/17 00:10 Chloride 88.4 mmol/L (98-107) L 08/05/17 00:10 Carbon Dioxide 30 mmol/L (22-30) 08/05/17 00:10 Anion Gap 16 mmol/L 08/05/17 00:10 BUN 9 mg/dL (7-17) 08/05/17 00:10 Creatinine 0.5 mg/dL (0.7-1.2) L 08/05/17 00:10 Estimated GFR > 60 ml/min 08/05/17 00:10 BUN/Creatinine Ratio 18 % 08/05/17 00:10 Glucose 109 mg/dL (65-100) H 08/05/17 00:10 POC Glucose 88 (70-105) 08/05/17 00:03 Calcium 8.5 mg/dL (8.4-10.2) 08/05/17 00:10 Magnesium 1.70 mg/dL (1.7-2.3) 08/05/17 00:10 Total Bilirubin 0.50 mg/dL (0.1-1.2) 08/05/17 00:10 AST 17 units/L (5-40) 08/05/17 00:10 ALT 13 units/L (7-56) 08/05/17 00:10 Alkaline Phosphatase 70 units/L (35-129) 08/05/17 00:10 Ammonia 19.0 umol/L (25-60) L 08/05/17 00:10 Total Creatine Kinase 67 units/L (30-135) 08/05/17 00:10 CK-MB (CK-2) 4.3 ng/mL (0.0-4.0) H 08/05/17 00:10 CK-MB (CK-2) Rel Index 6.4 (0-4) H 08/05/17 00:10 Troponin T < 0.010 ng/mL (0.00-0.029) 08/05/17 15:58 Total Protein 6.6 g/dL (6.3-8.2) 08/05/17 00:10 Albumin 3.6 g/dL (3.9-5) L 08/05/17 00:10 Albumin/Globulin Ratio 1.2 % 08/05/17 00:10 Triglycerides 60 mg/dL (2-149) 08/06/17 05:03 Cholesterol 206 mg/dL (50-199) H 08/06/17 05:03 LDL Cholesterol Direct 98 mg/dL (50-130) 08/06/17 05:03 HDL Cholesterol 96 mg/dL (40-59) H 08/06/17 05:03 Cholesterol/HDL Ratio 2.14 % 08/06/17 05:03 Vitamin B12 359.3 pg/mL (211-911) 08/06/17 05:03 Folate 16.27 ng/mL (7.3-26.0) 08/06/17 05:03 TSH 4.960 mlU/mL (0.270-4.200) H 08/05/17 00:10 Free T4 1.61 ng/dL (0.76-1.46) H 08/05/17 00:10 Thyroxine (T4) 11.1 ug/dL (4.0-12.0) 08/05/17 00:10 Urine Color Straw (Yellow) 08/05/17 00:44 Urine Turbidity Clear (Clear) 08/05/17 00:44 Urine pH 7.0 (5.0-7.0) 08/05/17 00:44 Ur Specific [place] 1.004 (1.003-1.030) 08/05/17 00:44 Urine Protein <15 mg/dl mg/dL (Negative) 08/05/17 00:44 Urine Glucose (UA) Neg mg/dL (Negative) 08/05/17 00:44 Urine Ketones Neg mg/dL (Negative) 08/05/17 00:44 Urine Blood Sm (Negative) 08/05/17 00:44 Urine Nitrite Neg (Negative) 08/05/17 00:44 Urine Bilirubin Neg (Negative) 08/05/17 00:44 Urine Urobilinogen < 2.0 mg/dL (<2.0) 08/05/17 00:44 Ur Leukocyte Esterase Neg (Negative) 08/05/17 00:44 Urine WBC (Auto) < 1.0 /HPF (0.0-6.0) 08/05/17 00:44 Urine RBC (Auto) 2.0 /HPF (0.0-6.0) 08/05/17 00:44 Urine Mucus Few /HPF 08/05/17 00:44 Urine Opiates Screen Presumptive negative 08/05/17 00:44 Urine Methadone Screen Presumptive negative 08/05/17 00:44 Ur Barbiturates Screen Presumptive negative 08/05/17 00:44 Ur Phencyclidine Scrn Presumptive negative 08/05/17 00:44 Ur Amphetamines Screen Presumptive negative 08/05/17 00:44 U Benzodiazepines Scrn Presumptive negative 08/05/17 00:44 Urine Cocaine Screen Presumptive negative 08/05/17 00:44 U Marijuana (THC) Screen Presumptive negative 08/05/17 00:44 Drugs of Abuse Note Disclamer 08/05/17 00:44 Plasma/Serum Alcohol < 0.01 % (0-0.07) 08/05/17 00:10
--- NOTE | 2017-08-06 19:43 | Progress Note ---
Assessment and Plan Impression: 1. Dysarthria 2. Episode of bladder incontinence 3. Memory loss Plan: 1. Despite EEG showing only slowing but no epileptiform activity (which could be just that it is a small snapshot in time), this episode could have been a seizure with postictal slurring. 2. In case it was a seizure, would suggest tapering off either duloxetine or Paxil since not clear that she needs both and both can rarely cause seizures, obviously a more likely occurrence when on both together. 3. I ordered vitamin B12 2000 g daily. Please check B1 and total T3 when they become available. 4. I'm signing off. Call for any further questions. She seems to be back to her baseline. Subjective Date of service: 08/06/17 Principal diagnosis: dysarthria, memory loss Interval history: Chief complaint: Slurred speech, altered mental status History of present illness: This lady 82s white female is seen again in follow- up. EEG showed some frontal slowing at times but no epileptiform activity. Some EMG artifact was seen as well as eye blink artifact. B12 was 359.3, folate 16.27 but B1 and total T3 are still pending. Objective - Exam Narrative Exam: Gen. appearance: Well-developed overweight (per BMI) late 80s white female in [facility], now using her dentures. 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 Cerebellar: finger to nose and [id number] are intact. Motor Exam Upper Extremities: no drift or pronation, Alexandra are normal. Motor Exam Lower Extremities: quadriceps are 5 right and 4+ left, anterior tibials and gastrocnemius are 5 right and 4+ left. Alexandra are slightly slow bilaterally. - Vital Sign Vital Signs - 12hr 08/06/17 08/06/17 08/06/17 08:24 10:00 16:05 Temperature 98.6 F 98.6 F Pulse Rate 98 H 100 H Respiratory 20 20 19 Rate Blood Pressure 139/83 153/91 O2 Sat by Pulse 94 94 99 Oximetry 08/06/17 16:53 Temperature Pulse Rate Respiratory 18 Rate Blood Pressure O2 Sat by Pulse Oximetry - Laboratory Findings CBC and BMP: 08/05/17 00:10 08/05/17 00:10 Abnormal Lab Findings: Abnormal Labs 08/05/17 08/05/17 08/05/17 00:10 00:10 00:10 WBC 11.9 H Lymph % (Auto) 37.6 H PT INR Sodium 131 L Chloride 88.4 L Creatinine 0.5 L Glucose 109 H Ammonia 19.0 L CK-MB (CK-2) 4.3 H CK-MB (CK-2) Rel Index 6.4 H Albumin 3.6 L Cholesterol HDL Cholesterol TSH Free T4 08/05/17 08/05/17 08/06/17 00:10 00:10 05:03 WBC Lymph % (Auto) PT 11.4 L INR 0.79 L Sodium Chloride Creatinine Glucose Ammonia CK-MB (CK-2) CK-MB (CK-2) Rel Index Albumin Cholesterol 206 H HDL Cholesterol 96 H TSH 4.960 H Free T4 1.61 H
[2017-08-07] MEDS: SYNTHROID PO SCH (05:50)
[2017-08-07] MEDS: CYMBALTA PO SCH (09:09)
[2017-08-07] MEDS: ASPIRIN PO SCH (09:10)
[2017-08-07] MEDS: PAXIL PO SCH (09:10)
[2017-08-07] MEDS: PROTONIX PO SCH (09:10)
[2017-08-07] MEDS ORDERED: VITAMIN B-12 PO SCH (10:00)
--- NOTE | 2017-08-07 14:55 | Discharge Summary ---
Providers - Providers Date of Admission: 08/05/17 07:02 Attending physician: EVELIN MARTELL MD 08/05/17 Consult to Physician [CONS] Routine Consulting Provider: HERMES FERNANDEZ Reason For Exam: AMS, slurred speech Place consult to:: Notified:: Phone number called:: [phone] Was contact made?: Yes If yes, spoke with:: ROMERO Time called:: 11:13 Comment:: GLADYS 08/05/17 10:44 Consult to Case Management [CONS] Routine Services Needed at Discharge: Home Health Services Notified:: BLANK Consult to Dietitian/Nutrition [CONS] Routine Physician Instructions: Reason For Exam: Reason for Consult: Nutrition Recommendations Reason for Consult: malnutritoin Occupational Therapy Evaluate and Treat [CONS] Routine Comment: Reason For Exam: Neuro deficits Physical Therapy Evaluation and Treat [CONS] Routine Comment: Reason For Exam: Neuro deficits Primary care physician: YAN STEWARD Hospitalization Condition: Stable Hospital course: 89F who was brought in by family for slurred speech, confusion, "acting strange ", metabolic encephalopathy -UA is negative, UDS is negative, chest x-ray was also negative for infectious process -Now resolved, back to baseline mentation CVA ruled out, neurology input appreciated, MRI of her brain was unremarkable - Hyponatremia -Has received normal saline HTN -Resume meds Hypothyroidism -Total T4 is within normal limits, continue Synthroid at current dose Gastritis -Continue PPI Dvt ppx scds Home with services tomorrow if continues to improve Disposition: DC/TX-06 HOME UNDER HOME [facility] Time spent for discharge: 33 minutes Core Measure Documentation - Palliative Care Palliative Care/ Comfort Measures: Not Applicable - Core Measures Any of the following diagnoses?: none Exam - Physical Exam Narrative exam: General.: Appears well, no distress, nontoxic HEENT: Moist mucous membranes, extraocular muscles intact, no lymphadenopathy Neck: supple Cardiac: S1-S2 heard Lungs: clear to auscultation bilaterally Abdomen: soft , nontender, nondistended, bowel sounds positive Extremities: no edema clubbing or cyanosis Skin: no rash or lesions Neurologic: Moves all extremities, demented, oriented to person and place, she thinks it is 1997 - Constitutional Vitals: Temp Pulse Resp BP Pulse Ox 97.7 F 98 H 20 142/70 95 08/07/17 07:44 08/07/17 07:44 08/07/17 10:00 08/07/17 07:44 08/07/17 10:00 Plan Follow up with: YAN STEWARD MD [Primary Care Provider] - 3-5 Days
[2017-08-07 16:03] VITALS: BP 143/84
== END 2017-08-07 18:45 | disposition home health service (06) | DRG 640 ==
LOC: ED 00:01 → 2B-ACE 07:02
PROVIDERS: ADMIT Internal Medicine; ATTEND Internal Medicine
DX: E87.1 Hypo-osmolality and hyponatremia (principal); G93.41 Metabolic encephalopathy; R47.81 Slurred speech; I10 Essential (primary) hypertension; K29.70 Gastritis, unspecified, without bleeding; E03.9 Hypothyroidism, unspecified; M81.0 Age-related osteoporosis without current pathological fracture; F32.9 Major depressive disorder, single episode, unspecified; F03.90 Unspecified dementia, unspecified severity, without behavioral disturbance, psychotic disturbance, mood disturbance, and anxiety; R41.3 Other amnesia; R47.1 Dysarthria and anarthria; G62.9 Polyneuropathy, unspecified; Z79.899 Other long term (current) drug therapy; Z88.8 Allergy status to other drugs, medicaments and biological substances
CPT/HCPCS: 36415; 70450; 70544; 70551; 71046; 80053; 80061; 80307; 80320; 81001; 82140; 82550; 82553; 82607; 82747; 82962; 83735; 84425; 84436; 84439; 84443; 84480; 84484; 85025; 85610; 85730; 93005; 93010; 93306; 93880; 95819; G0480; G8987-GO; G8988-GO; G8989-GO; J2060